=== PATIENT | male | born 1995 | race Caucasian/White ===

== ENCOUNTER 2022-11-05 00:14 | Emergency (ER) | payer SELFPAY ==
[2022-11-05] MEDS ORDERED: Acetaminophen 500 MG Tab PO ONE (00:32)
[2022-11-05] MEDS ORDERED: Ibuprofen 600 MG Tab PO ONE (00:32)
[2022-11-05] MEDS ORDERED: Dexamethasone 10 MG/ML SDV PO ONE (00:36)
[2022-11-05] MEDS ORDERED: Amoxicillin/Clavulanate K 875-125 MG Tab PO ONE (01:10)
== END 2022-11-05 01:25 | disposition home or self-care (01) ==
LOC: MW.ED 00:14
DX: J02.9 Acute pharyngitis, unspecified (principal); Z20.822 Contact with and (suspected) exposure to COVID-19
CPT/HCPCS: 87635; 87651; 99283; A9270; J8540; 99282; U0002